=== PATIENT | male | born 1970 | race Caucasian/White ===

== ENCOUNTER → 2019-07-05 | Outpatient (CLI) | payer MEDICAID ==
[2019-07-05 15:59] LABS: WHITE BLOOD COUNT 9.2 10^3/uL (4.3-11.0)
[2019-07-05 16:00] LABS: BASOPHILS # (AUTO) 0.1 10^3/uL (0.0-0.1); BASOPHILS % (AUTO) 1 % (0-10); EOSINOPHILS # (AUTO) 0.3 10^3/uL (0.0-0.3); EOSINOPHILS % (AUTO) 3 % (0-10); HEMATOCRIT 36 % (40-54); HEMOGLOBIN 11.5 G/DL (13.3-17.7); LYMPHOCYTES # (AUTO) 1.7 X 10^3 (1.0-4.0); LYMPHOCYTES % (AUTO) 18 % (12-44); MEAN CORPUSCULAR HEMOGLOBIN 28 PG (25-34); MEAN CORPUSCULAR HGB CONC 32 G/DL (32-36); MEAN CORPUSCULAR VOLUME 88 FL (80-99); MEAN PLATELET VOLUME 9.5 FL (7.4-10.4); MONOCYTES # (AUTO) 0.6 X 10^3 (0.0-1.0); MONOCYTES % (AUTO) 6 % (0-12); NEUTROPHILS # (AUTO) 6.5 X 10^3 (1.8-7.8); NEUTROPHILS % (AUTO) 71 % (42-75); PLATELET COUNT 459 10^3/uL (130-400); RED CELL DISTRIBUTION WIDTH 13.3 % (10.0-14.5)
[2019-07-05 16:09] LABS: BUN/CREATININE RATIO 12; CARBON DIOXIDE 27 MMOL/L (21-32); CHLORIDE 95 MMOL/L (98-107); CREATININE SERUM 0.73 MG/DL (0.60-1.30); GFR ESTIMATED > 60; POTASSIUM 4.6 MMOL/L (3.6-5.0); SODIUM 136 MMOL/L (135-145)
[2019-07-05 16:16] LABS: ALANINE AMINOTRANSFERASE 21 U/L (0-55); ALBUMIN 3.4 GM/DL (3.2-4.5); ALKALINE PHOSPHATASE 281 U/L (40-136); BILIRUBIN,TOTAL 0.3 MG/DL (0.1-1.0); CALCIUM 9.2 MG/DL (8.5-10.1); GLUCOSE 410 MG/DL (70-105); TOTAL PROTEIN 8.9 GM/DL (6.4-8.2)
[2019-07-05 16:44] LABS: ERYTHROCYTE SEDIMENTATION RATE 102 MM/HR (0-15)
== END ==
LOC: LAB FS 15:30
PROVIDERS: ATTEND Family Medicine
DX: A41.9 Sepsis, unspecified organism (principal); Z79.2 Long term (current) use of antibiotics
CPT/HCPCS: 36415; 80053; 85025; 85652; 86141

== ENCOUNTER → 2019-07-12 | Outpatient (CLI) | payer MEDICAID ==
[2019-07-12 18:33] LABS: HEMOGLOBIN 11.1 G/DL (13.3-17.7); MEAN CORPUSCULAR HEMOGLOBIN 28 PG (25-34); WHITE BLOOD COUNT 7.6 10^3/uL (4.3-11.0)
[2019-07-12 18:34] LABS: BASOPHILS % (AUTO) 0 % (0-10); EOSINOPHILS % (AUTO) 5 % (0-10); HEMATOCRIT 35 % (40-54); LYMPHOCYTES % (AUTO) 26 % (12-44); MEAN CORPUSCULAR HGB CONC 32 G/DL (32-36); MEAN CORPUSCULAR VOLUME 88 FL (80-99); MEAN PLATELET VOLUME 10.3 FL (7.4-10.4); MONOCYTES % (AUTO) 9 % (0-12); NEUTROPHILS # (AUTO) 4.6 X 10^3 (1.8-7.8); NEUTROPHILS % (AUTO) 60 % (42-75); PLATELET COUNT 241 10^3/uL (130-400); RED CELL DISTRIBUTION WIDTH 13.5 % (10.0-14.5)
[2019-07-12 18:35] LABS: EOSINOPHILS # (AUTO) 0.4 10^3/uL (0.0-0.3); MONOCYTES # (AUTO) 0.7 X 10^3 (0.0-1.0)
[2019-07-12 18:48] LABS: CARBON DIOXIDE 26 MMOL/L (21-32); CHLORIDE 95 MMOL/L (98-107); POTASSIUM 3.9 MMOL/L (3.6-5.0); SODIUM 137 MMOL/L (135-145)
[2019-07-12 18:49] LABS: ALANINE AMINOTRANSFERASE 14 U/L (0-55); ALBUMIN 3.3 GM/DL (3.2-4.5); ALKALINE PHOSPHATASE 147 U/L (40-136); BILIRUBIN,TOTAL 0.3 MG/DL (0.1-1.0); BUN/CREATININE RATIO 22; CALCIUM 9.2 MG/DL (8.5-10.1); GFR ESTIMATED > 60; GLUCOSE 268 MG/DL (70-105); TOTAL PROTEIN 8.3 GM/DL (6.4-8.2)
[2019-07-12 18:55] LABS: ERYTHROCYTE SEDIMENTATION RATE 74 MM/HR (0-15)
[2019-07-13 08:40] LABS: CREATINE KINASE 35 U/L (30-200)
== END ==
LOC: LAB FS 18:11
PROVIDERS: ATTEND Internal Medicine Infectious Disease
DX: A41.9 Sepsis, unspecified organism (principal); L03.119 Cellulitis of unspecified part of limb; Z79.2 Long term (current) use of antibiotics
CPT/HCPCS: 80053; 82550; 85025; 85652; 86141

== ENCOUNTER → 2019-07-19 | Outpatient (CLI) | payer MEDICAID ==
[2019-07-19 17:06] LABS: HEMATOCRIT 37 % (40-54); HEMOGLOBIN 11.7 G/DL (13.3-17.7); MEAN CORPUSCULAR HEMOGLOBIN 27 PG (25-34); MEAN CORPUSCULAR HGB CONC 32 G/DL (32-36); MEAN CORPUSCULAR VOLUME 87 FL (80-99); PLATELET COUNT 283 10^3/uL (130-400); RED CELL DISTRIBUTION WIDTH 13.5 % (10.0-14.5); WHITE BLOOD COUNT 9.1 10^3/uL (4.3-11.0)
[2019-07-19 17:07] LABS: BASOPHILS # (AUTO) 0.1 10^3/uL (0.0-0.1); BASOPHILS % (AUTO) 1 % (0-10); EOSINOPHILS # (AUTO) 0.4 10^3/uL (0.0-0.3); EOSINOPHILS % (AUTO) 4 % (0-10); LYMPHOCYTES % (AUTO) 22 % (12-44); MONOCYTES # (AUTO) 0.8 X 10^3 (0.0-1.0); MONOCYTES % (AUTO) 9 % (0-12); NEUTROPHILS # (AUTO) 5.9 X 10^3 (1.8-7.8); NEUTROPHILS % (AUTO) 65 % (42-75)
[2019-07-19 17:19] LABS: ALANINE AMINOTRANSFERASE 15 U/L (0-55); ALKALINE PHOSPHATASE 121 U/L (40-136); BILIRUBIN,TOTAL 0.2 MG/DL (0.1-1.0); BUN/CREATININE RATIO 18; CALCIUM 9.4 MG/DL (8.5-10.1); CARBON DIOXIDE 19 MMOL/L (21-32); CHLORIDE 102 MMOL/L (98-107); CREATININE SERUM 0.78 MG/DL (0.60-1.30); GFR ESTIMATED > 60; GLUCOSE 204 MG/DL (70-105); POTASSIUM 4.2 MMOL/L (3.6-5.0); SODIUM 137 MMOL/L (135-145)
[2019-07-19 17:20] LABS: ALBUMIN 3.4 GM/DL (3.2-4.5); TOTAL PROTEIN 8.2 GM/DL (6.4-8.2)
[2019-07-19 18:21] LABS: ERYTHROCYTE SEDIMENTATION RATE 62 MM/HR (0-15)
== END ==
LOC: LAB FS 16:37
PROVIDERS: ATTEND Internal Medicine Infectious Disease
DX: A41.9 Sepsis, unspecified organism (principal); L03.119 Cellulitis of unspecified part of limb; Z79.2 Long term (current) use of antibiotics
CPT/HCPCS: 36415; 80053; 82550; 85025; 85652; 86141

== ENCOUNTER → 2019-07-26 | Outpatient (CLI) | payer MEDICAID ==
[2019-07-26 19:16] LABS: HEMATOCRIT 36 % (40-54); HEMOGLOBIN 11.6 G/DL (13.3-17.7); MEAN CORPUSCULAR HEMOGLOBIN 27 PG (25-34); MEAN CORPUSCULAR HGB CONC 32 G/DL (32-36); MEAN CORPUSCULAR VOLUME 85 FL (80-99); WHITE BLOOD COUNT 9.9 10^3/uL (4.3-11.0)
[2019-07-26 19:17] LABS: BASOPHILS # (AUTO) 0.1 10^3/uL (0.0-0.1); BASOPHILS % (AUTO) 1 % (0-10); EOSINOPHILS # (AUTO) 0.5 10^3/uL (0.0-0.3); EOSINOPHILS % (AUTO) 5 % (0-10); LYMPHOCYTES # (AUTO) 2.4 X 10^3 (1.0-4.0); LYMPHOCYTES % (AUTO) 24 % (12-44); MONOCYTES # (AUTO) 0.7 X 10^3 (0.0-1.0); MONOCYTES % (AUTO) 8 % (0-12); NEUTROPHILS # (AUTO) 6.1 X 10^3 (1.8-7.8); NEUTROPHILS % (AUTO) 62 % (42-75); PLATELET COUNT 342 10^3/uL (130-400); RED CELL DISTRIBUTION WIDTH 13.4 % (10.0-14.5)
[2019-07-26 19:45] LABS: ALANINE AMINOTRANSFERASE 14 U/L (0-55); ALBUMIN 3.4 GM/DL (3.2-4.5); ALKALINE PHOSPHATASE 122 U/L (40-136); BILIRUBIN,TOTAL 0.2 MG/DL (0.1-1.0); BUN/CREATININE RATIO 27; CALCIUM 9.5 MG/DL (8.5-10.1); CARBON DIOXIDE 26 MMOL/L (21-32); CHLORIDE 99 MMOL/L (98-107); CREATININE SERUM 0.75 MG/DL (0.60-1.30); GFR ESTIMATED > 60; GLUCOSE 163 MG/DL (70-105); POTASSIUM 4.7 MMOL/L (3.6-5.0); SODIUM 139 MMOL/L (135-145); TOTAL PROTEIN 7.7 GM/DL (6.4-8.2)
[2019-07-26 19:48] LABS: ERYTHROCYTE SEDIMENTATION RATE 57 MM/HR (0-15)
== END ==
LOC: LAB FS 17:40
PROVIDERS: ATTEND Internal Medicine Infectious Disease
DX: A41.9 Sepsis, unspecified organism (principal); L03.119 Cellulitis of unspecified part of limb; Z79.2 Long term (current) use of antibiotics
CPT/HCPCS: 36415; 80053; 82550; 85025; 85652; 86141

== ENCOUNTER → 2019-08-02 | Outpatient (CLI) | payer MEDICAID ==
[2019-08-02 19:56] LABS: ALANINE AMINOTRANSFERASE 12 U/L (0-55); ALBUMIN 3.6 GM/DL (3.2-4.5); ALKALINE PHOSPHATASE 140 U/L (40-136); BILIRUBIN,TOTAL 0.3 MG/DL (0.1-1.0); BUN/CREATININE RATIO 19; CALCIUM 9.1 MG/DL (8.5-10.1); CARBON DIOXIDE 24 MMOL/L (21-32); CHLORIDE 97 MMOL/L (98-107); GFR ESTIMATED > 60; GLUCOSE 214 MG/DL (70-105); POTASSIUM 3.8 MMOL/L (3.6-5.0); SODIUM 137 MMOL/L (135-145); TOTAL PROTEIN 7.9 GM/DL (6.4-8.2)
[2019-08-02 20:05] LABS: HEMATOCRIT 35 % (40-54); MEAN CORPUSCULAR HEMOGLOBIN 27 PG (25-34); MEAN CORPUSCULAR HGB CONC 32 G/DL (32-36); MEAN CORPUSCULAR VOLUME 85 FL (80-99)
[2019-08-02 20:06] LABS: BASOPHILS % (AUTO) 0 % (0-10); EOSINOPHILS # (AUTO) 0.4 10^3/uL (0.0-0.3); EOSINOPHILS % (AUTO) 4 % (0-10); ERYTHROCYTE SEDIMENTATION RATE 60 MM/HR (0-15); LYMPHOCYTES # (AUTO) 2.5 X 10^3 (1.0-4.0); LYMPHOCYTES % (AUTO) 25 % (12-44); MEAN PLATELET VOLUME 10.5 FL (7.4-10.4); MONOCYTES # (AUTO) 0.7 X 10^3 (0.0-1.0); MONOCYTES % (AUTO) 7 % (0-12); NEUTROPHILS # (AUTO) 6.4 X 10^3 (1.8-7.8); NEUTROPHILS % (AUTO) 64 % (42-75); PLATELET COUNT 284 10^3/uL (130-400); RED CELL DISTRIBUTION WIDTH 13.2 % (10.0-14.5)
== END ==
LOC: LAB FS 17:59
PROVIDERS: ATTEND Internal Medicine Infectious Disease
DX: A41.9 Sepsis, unspecified organism (principal); L03.119 Cellulitis of unspecified part of limb; Z79.2 Long term (current) use of antibiotics
CPT/HCPCS: 36415; 80053; 82550; 85025; 85652; 86141

== ENCOUNTER → 2019-08-09 | Outpatient (CLI) | payer MEDICAID ==
[2019-08-09 18:09] LABS: WHITE BLOOD COUNT 8.4 10^3/uL (4.3-11.0)
[2019-08-09 18:10] LABS: BASOPHILS % (AUTO) 0 % (0-10); EOSINOPHILS # (AUTO) 0.3 10^3/uL (0.0-0.3); EOSINOPHILS % (AUTO) 4 % (0-10); HEMATOCRIT 38 % (40-54); HEMOGLOBIN 12.2 G/DL (13.3-17.7); LYMPHOCYTES # (AUTO) 1.9 X 10^3 (1.0-4.0); LYMPHOCYTES % (AUTO) 23 % (12-44); MEAN CORPUSCULAR HEMOGLOBIN 27 PG (25-34); MEAN CORPUSCULAR HGB CONC 32 G/DL (32-36); MEAN CORPUSCULAR VOLUME 84 FL (80-99); MEAN PLATELET VOLUME 9.9 FL (7.4-10.4); MONOCYTES # (AUTO) 0.6 X 10^3 (0.0-1.0); MONOCYTES % (AUTO) 8 % (0-12); NEUTROPHILS # (AUTO) 5.4 X 10^3 (1.8-7.8); NEUTROPHILS % (AUTO) 65 % (42-75); PLATELET COUNT 309 10^3/uL (130-400); RED CELL DISTRIBUTION WIDTH 13.5 % (10.0-14.5)
[2019-08-09 18:31] LABS: ALANINE AMINOTRANSFERASE 11 U/L (0-55); ALBUMIN 3.6 GM/DL (3.2-4.5); ALKALINE PHOSPHATASE 122 U/L (40-136); BILIRUBIN,TOTAL 0.3 MG/DL (0.1-1.0); BUN/CREATININE RATIO 21; CALCIUM 9.6 MG/DL (8.5-10.1); CARBON DIOXIDE 25 MMOL/L (21-32); CHLORIDE 97 MMOL/L (98-107); CREATININE SERUM 0.62 MG/DL (0.60-1.30); GFR ESTIMATED > 60; GLUCOSE 186 MG/DL (70-105); POTASSIUM 4.1 MMOL/L (3.6-5.0); SODIUM 138 MMOL/L (135-145); TOTAL PROTEIN 7.8 GM/DL (6.4-8.2)
[2019-08-09 18:32] LABS: ERYTHROCYTE SEDIMENTATION RATE 57 MM/HR (0-15)
== END ==
LOC: IHC 17:21
PROVIDERS: ATTEND Internal Medicine Infectious Disease
DX: A41.9 Sepsis, unspecified organism (principal); L03.119 Cellulitis of unspecified part of limb; Z79.2 Long term (current) use of antibiotics
CPT/HCPCS: 36415; 80053; 82550; 85025; 85652; 86141

== ENCOUNTER → 2019-08-17 | Outpatient (CLI) | payer MEDICAID ==
[2019-08-17 16:53] LABS: BASOPHILS % (AUTO) 0 % (0-10); EOSINOPHILS # (AUTO) 0.2 10^3/uL (0.0-0.3); EOSINOPHILS % (AUTO) 2 % (0-10); ERYTHROCYTE SEDIMENTATION RATE 1 MM/HR (0-15); HEMATOCRIT 41 % (40-54); HEMOGLOBIN 12.9 G/DL (13.3-17.7); LYMPHOCYTES # (AUTO) 2.1 X 10^3 (1.0-4.0); LYMPHOCYTES % (AUTO) 24 % (12-44); MEAN CORPUSCULAR HEMOGLOBIN 26 PG (25-34); MEAN CORPUSCULAR VOLUME 84 FL (80-99); MEAN PLATELET VOLUME 10.7 FL (7.4-10.4); MONOCYTES # (AUTO) 0.7 X 10^3 (0.0-1.0); MONOCYTES % (AUTO) 8 % (0-12); NEUTROPHILS # (AUTO) 5.8 X 10^3 (1.8-7.8); NEUTROPHILS % (AUTO) 66 % (42-75); PLATELET COUNT 353 10^3/uL (130-400); RED CELL DISTRIBUTION WIDTH 13.3 % (10.0-14.5); WHITE BLOOD COUNT 8.8 10^3/uL (4.3-11.0)
[2019-08-17 16:54] LABS: BILIRUBIN,TOTAL 0.3 MG/DL (0.1-1.0); BUN/CREATININE RATIO 28; CALCIUM 10.1 MG/DL (8.5-10.1); CARBON DIOXIDE 22 MMOL/L (21-32); CHLORIDE 99 MMOL/L (98-107); CREATININE SERUM 0.74 MG/DL (0.60-1.30); GFR ESTIMATED > 60; GLUCOSE 252 MG/DL (70-105); MEAN CORPUSCULAR HGB CONC 32 G/DL (32-36); POTASSIUM 4.3 MMOL/L (3.6-5.0); SODIUM 138 MMOL/L (135-145)
[2019-08-17 16:55] LABS: ALANINE AMINOTRANSFERASE 13 U/L (0-55); ALBUMIN 3.9 GM/DL (3.2-4.5); ALKALINE PHOSPHATASE 147 U/L (40-136); TOTAL PROTEIN 8.5 GM/DL (6.4-8.2)
== END ==
LOC: LAB FS 15:23
PROVIDERS: ATTEND Internal Medicine Infectious Disease
DX: A41.9 Sepsis, unspecified organism (principal); L03.119 Cellulitis of unspecified part of limb; Z79.2 Long term (current) use of antibiotics
CPT/HCPCS: 36415; 80053; 82550; 85025; 85652; 86141

== ENCOUNTER → 2019-08-24 | Outpatient (CLI) | payer MEDICAID ==
[2019-08-24 15:38] LABS: BASOPHILS % (AUTO) 0 % (0-10); EOSINOPHILS # (AUTO) 0.2 10^3/uL (0.0-0.3); EOSINOPHILS % (AUTO) 3 % (0-10); HEMATOCRIT 38 % (40-54); HEMOGLOBIN 11.8 G/DL (13.3-17.7); LYMPHOCYTES # (AUTO) 1.7 X 10^3 (1.0-4.0); LYMPHOCYTES % (AUTO) 23 % (12-44); MEAN CORPUSCULAR HEMOGLOBIN 26 PG (25-34); MEAN CORPUSCULAR HGB CONC 32 G/DL (32-36); MEAN CORPUSCULAR VOLUME 83 FL (80-99); MEAN PLATELET VOLUME 10.4 FL (7.4-10.4); MONOCYTES # (AUTO) 0.7 X 10^3 (0.0-1.0); MONOCYTES % (AUTO) 10 % (0-12); NEUTROPHILS # (AUTO) 4.9 X 10^3 (1.8-7.8); NEUTROPHILS % (AUTO) 65 % (42-75); PLATELET COUNT 283 10^3/uL (130-400); RED CELL DISTRIBUTION WIDTH 13.7 % (10.0-14.5); WHITE BLOOD COUNT 7.6 10^3/uL (4.3-11.0)
[2019-08-24 15:56] LABS: ALANINE AMINOTRANSFERASE 9 U/L (0-55); ALBUMIN 3.4 GM/DL (3.2-4.5); ALKALINE PHOSPHATASE 120 U/L (40-136); BILIRUBIN,TOTAL 0.2 MG/DL (0.1-1.0); BUN/CREATININE RATIO 15; CALCIUM 8.8 MG/DL (8.5-10.1); CARBON DIOXIDE 24 MMOL/L (21-32); CHLORIDE 101 MMOL/L (98-107); CREATININE SERUM 0.75 MG/DL (0.60-1.30); GFR ESTIMATED > 60; GLUCOSE 354 MG/DL (70-105); POTASSIUM 4.2 MMOL/L (3.6-5.0); SODIUM 138 MMOL/L (135-145); TOTAL PROTEIN 7.2 GM/DL (6.4-8.2)
[2019-08-24 16:28] LABS: ERYTHROCYTE SEDIMENTATION RATE 58 MM/HR (0-15)
[2019-08-25 15:22] LABS: CREATINE KINASE 33 U/L (30-200)
== END ==
LOC: LAB FS 15:07
PROVIDERS: ATTEND Internal Medicine Infectious Disease
DX: A41.9 Sepsis, unspecified organism (principal); L03.119 Cellulitis of unspecified part of limb; Z79.2 Long term (current) use of antibiotics
CPT/HCPCS: 36415; 80053; 82550; 85025; 85652; 86141

== ENCOUNTER → 2019-09-18 | Outpatient (CLI) | payer MEDICAID ==
[2019-09-18 16:43] LABS: HEMATOCRIT 38 % (40-54); HEMOGLOBIN 11.5 G/DL (13.3-17.7); MEAN CORPUSCULAR HEMOGLOBIN 25 PG (25-34); MEAN CORPUSCULAR HGB CONC 30 G/DL (32-36); MEAN CORPUSCULAR VOLUME 82 FL (80-99); MEAN PLATELET VOLUME 10.2 FL (7.4-10.4); PLATELET COUNT 394 10^3/uL (130-400); RED CELL DISTRIBUTION WIDTH 13.7 % (10.0-14.5); WHITE BLOOD COUNT 9.6 10^3/uL (4.3-11.0)
[2019-09-18 16:44] LABS: BASOPHILS # (AUTO) 0.1 10^3/uL (0.0-0.1); BASOPHILS % (AUTO) 1 % (0-10); EOSINOPHILS # (AUTO) 0.5 10^3/uL (0.0-0.3); EOSINOPHILS % (AUTO) 5 % (0-10); ERYTHROCYTE SEDIMENTATION RATE 1 MM/HR (0-15); LYMPHOCYTES # (AUTO) 2.1 X 10^3 (1.0-4.0); LYMPHOCYTES % (AUTO) 22 % (12-44); MONOCYTES # (AUTO) 0.8 X 10^3 (0.0-1.0); MONOCYTES % (AUTO) 8 % (0-12); NEUTROPHILS # (AUTO) 6.3 X 10^3 (1.8-7.8); NEUTROPHILS % (AUTO) 65 % (42-75)
[2019-09-18 16:45] LABS: ALANINE AMINOTRANSFERASE 19 U/L (0-55); ALBUMIN 3.7 GM/DL (3.2-4.5); ALKALINE PHOSPHATASE 133 U/L (40-136); BILIRUBIN,TOTAL 0.2 MG/DL (0.1-1.0); BUN/CREATININE RATIO 17; CALCIUM 9.5 MG/DL (8.5-10.1); CARBON DIOXIDE 28 MMOL/L (21-32); CHLORIDE 97 MMOL/L (98-107); CREATININE SERUM 0.87 MG/DL (0.60-1.30); GFR ESTIMATED > 60; GLUCOSE 346 MG/DL (70-105); POTASSIUM 4.5 MMOL/L (3.6-5.0); SODIUM 138 MMOL/L (135-145)
== END ==
LOC: LAB FS 16:08
PROVIDERS: ATTEND Internal Medicine Infectious Disease
DX: L97.512 Non-pressure chronic ulcer of other part of right foot with fat layer exposed (principal); L03.115 Cellulitis of right lower limb; B95.1 Streptococcus, group B, as the cause of diseases classified elsewhere; Z79.2 Long term (current) use of antibiotics
CPT/HCPCS: 36415; 80053; 85025; 85652; 86141

== ENCOUNTER → 2019-09-25 | Outpatient (CLI) | payer MEDICAID ==
[2019-09-25 19:42] LABS: BILIRUBIN,TOTAL 0.2 MG/DL (0.1-1.0); BUN/CREATININE RATIO 23; CALCIUM 9.6 MG/DL (8.5-10.1); CARBON DIOXIDE 28 MMOL/L (21-32); CHLORIDE 99 MMOL/L (98-107); CREATININE SERUM 0.75 MG/DL (0.60-1.30); GFR ESTIMATED > 60; POTASSIUM 4.4 MMOL/L (3.6-5.0); SODIUM 140 MMOL/L (135-145)
[2019-09-25 19:43] LABS: ALANINE AMINOTRANSFERASE 15 U/L (0-55); ALBUMIN 3.6 GM/DL (3.2-4.5); ALKALINE PHOSPHATASE 120 U/L (40-136); TOTAL PROTEIN 7.6 GM/DL (6.4-8.2)
[2019-09-25 19:44] LABS: GLUCOSE 415 MG/DL (70-105)
[2019-09-25 19:46] LABS: HEMATOCRIT 37 % (40-54); HEMOGLOBIN 11.6 G/DL (13.3-17.7); MEAN CORPUSCULAR HEMOGLOBIN 25 PG (25-34); MEAN CORPUSCULAR HGB CONC 31 G/DL (32-36); MEAN CORPUSCULAR VOLUME 80 FL (80-99); MEAN PLATELET VOLUME 10.5 FL (7.4-10.4); MONOCYTES % (AUTO) 7 % (0-12); NEUTROPHILS % (AUTO) 67 % (42-75); PLATELET COUNT 273 10^3/uL (130-400); RED CELL DISTRIBUTION WIDTH 13.8 % (10.0-14.5); WHITE BLOOD COUNT 8.3 10^3/uL (4.3-11.0)
[2019-09-25 19:47] LABS: BASOPHILS % (AUTO) 0 % (0-10); EOSINOPHILS # (AUTO) 0.4 10^3/uL (0.0-0.3); EOSINOPHILS % (AUTO) 4 % (0-10); LYMPHOCYTES # (AUTO) 1.8 X 10^3 (1.0-4.0); LYMPHOCYTES % (AUTO) 22 % (12-44); MONOCYTES # (AUTO) 0.6 X 10^3 (0.0-1.0); NEUTROPHILS # (AUTO) 5.5 X 10^3 (1.8-7.8)
[2019-09-25 19:48] LABS: ERYTHROCYTE SEDIMENTATION RATE 34 MM/HR (0-15)
== END ==
LOC: LAB FS 17:49
DX: M86.60 Other chronic osteomyelitis, unspecified site (principal)
CPT/HCPCS: 36415; 80053; 85025; 85652; 86141

== ENCOUNTER → 2019-10-02 | Outpatient (CLI) | payer MEDICAID ==
[2019-10-02 15:43] LABS: SODIUM 139 MMOL/L (135-145)
[2019-10-02 15:44] LABS: ALANINE AMINOTRANSFERASE 16 U/L (0-55); ALBUMIN 3.3 GM/DL (3.2-4.5); ALKALINE PHOSPHATASE 114 U/L (40-136); BILIRUBIN,TOTAL 0.2 MG/DL (0.1-1.0); BUN/CREATININE RATIO 21; CARBON DIOXIDE 24 MMOL/L (21-32); CHLORIDE 101 MMOL/L (98-107); CREATININE SERUM 0.87 MG/DL (0.60-1.30); GFR ESTIMATED > 60; GLUCOSE 245 MG/DL (70-105); POTASSIUM 4.5 MMOL/L (3.6-5.0); TOTAL PROTEIN 7.1 GM/DL (6.4-8.2)
[2019-10-02 16:30] LABS: HEMATOCRIT 35 % (40-54); HEMOGLOBIN 10.9 G/DL (13.3-17.7); MEAN CORPUSCULAR HEMOGLOBIN 24 PG (25-34); MEAN CORPUSCULAR HGB CONC 31 G/DL (32-36); MEAN CORPUSCULAR VOLUME 78 FL (80-99); MEAN PLATELET VOLUME 10.6 FL (7.4-10.4); PLATELET COUNT 294 10^3/uL (130-400); RED CELL DISTRIBUTION WIDTH 13.8 % (10.0-14.5); WHITE BLOOD COUNT 7.7 10^3/uL (4.3-11.0)
[2019-10-02 16:31] LABS: BASOPHILS # (AUTO) 0.1 10^3/uL (0.0-0.1); BASOPHILS % (AUTO) 1 % (0-10); EOSINOPHILS # (AUTO) 0.3 10^3/uL (0.0-0.3); EOSINOPHILS % (AUTO) 4 % (0-10); ERYTHROCYTE SEDIMENTATION RATE 38 MM/HR (0-15); LYMPHOCYTES # (AUTO) 1.6 X 10^3 (1.0-4.0); LYMPHOCYTES % (AUTO) 21 % (12-44); MONOCYTES # (AUTO) 0.7 X 10^3 (0.0-1.0); MONOCYTES % (AUTO) 10 % (0-12); NEUTROPHILS % (AUTO) 64 % (42-75)
== END ==
LOC: LAB FS 14:43
PROVIDERS: ATTEND Internal Medicine Infectious Disease
DX: L97.512 Non-pressure chronic ulcer of other part of right foot with fat layer exposed (principal); L03.115 Cellulitis of right lower limb; B95.1 Streptococcus, group B, as the cause of diseases classified elsewhere; Z79.2 Long term (current) use of antibiotics
CPT/HCPCS: 36415; 80053; 85025; 85652; 86141

== ENCOUNTER → 2019-10-09 | Outpatient (CLI) | payer MEDICAID ==
[2019-10-09 17:47] LABS: BASOPHILS # (AUTO) 0.1 10^3/uL (0.0-0.1); BASOPHILS % (AUTO) 1 % (0-10); EOSINOPHILS # (AUTO) 0.2 10^3/uL (0.0-0.3); EOSINOPHILS % (AUTO) 3 % (0-10); HEMATOCRIT 37 % (40-54); HEMOGLOBIN 11.3 G/DL (13.3-17.7); LYMPHOCYTES # (AUTO) 2.5 X 10^3 (1.0-4.0); LYMPHOCYTES % (AUTO) 29 % (12-44); MEAN CORPUSCULAR HEMOGLOBIN 24 PG (25-34); MEAN CORPUSCULAR HGB CONC 31 G/DL (32-36); MEAN CORPUSCULAR VOLUME 76 FL (80-99); MEAN PLATELET VOLUME 10.7 FL (7.4-10.4); MONOCYTES # (AUTO) 0.7 X 10^3 (0.0-1.0); MONOCYTES % (AUTO) 8 % (0-12); NEUTROPHILS # (AUTO) 5.2 X 10^3 (1.8-7.8); NEUTROPHILS % (AUTO) 60 % (42-75); PLATELET COUNT 346 10^3/uL (130-400); RED CELL DISTRIBUTION WIDTH 13.9 % (10.0-14.5); WHITE BLOOD COUNT 8.7 10^3/uL (4.3-11.0)
[2019-10-09 18:11] LABS: CARBON DIOXIDE 24 MMOL/L (21-32); CHLORIDE 103 MMOL/L (98-107); POTASSIUM 4.1 MMOL/L (3.6-5.0); SODIUM 139 MMOL/L (135-145)
[2019-10-09 18:12] LABS: ALANINE AMINOTRANSFERASE 11 U/L (0-55); ALBUMIN 3.4 GM/DL (3.2-4.5); ALKALINE PHOSPHATASE 146 U/L (40-136); BILIRUBIN,TOTAL 0.3 MG/DL (0.1-1.0); BUN/CREATININE RATIO 20; CALCIUM 9.2 MG/DL (8.5-10.1); CREATININE SERUM 0.71 MG/DL (0.60-1.30); GFR ESTIMATED > 60; GLUCOSE 199 MG/DL (70-105); TOTAL PROTEIN 7.1 GM/DL (6.4-8.2)
[2019-10-09 18:47] LABS: ERYTHROCYTE SEDIMENTATION RATE 35 MM/HR (0-15)
== END ==
LOC: IHC 17:16
PROVIDERS: ATTEND Internal Medicine Infectious Disease
DX: L97.512 Non-pressure chronic ulcer of other part of right foot with fat layer exposed (principal); L03.115 Cellulitis of right lower limb; B95.1 Streptococcus, group B, as the cause of diseases classified elsewhere; Z79.2 Long term (current) use of antibiotics
CPT/HCPCS: 36415; 80053; 85025; 85652; 86141

== ENCOUNTER → 2019-10-16 | Outpatient (CLI) | payer MEDICAID ==
[2019-10-16 17:57] LABS: HEMATOCRIT 40 % (40-54); HEMOGLOBIN 12.3 G/DL (13.3-17.7); MEAN CORPUSCULAR HEMOGLOBIN 24 PG (25-34); MEAN CORPUSCULAR HGB CONC 31 G/DL (32-36); MEAN CORPUSCULAR VOLUME 78 FL (80-99); WHITE BLOOD COUNT 9.3 10^3/uL (4.3-11.0)
[2019-10-16 17:58] LABS: BASOPHILS # (AUTO) 0.1 10^3/uL (0.0-0.1); BASOPHILS % (AUTO) 1 % (0-10); EOSINOPHILS # (AUTO) 0.3 10^3/uL (0.0-0.3); EOSINOPHILS % (AUTO) 3 % (0-10); LYMPHOCYTES # (AUTO) 2.1 X 10^3 (1.0-4.0); LYMPHOCYTES % (AUTO) 23 % (12-44); MEAN PLATELET VOLUME 10.7 FL (7.4-10.4); MONOCYTES # (AUTO) 0.6 X 10^3 (0.0-1.0); MONOCYTES % (AUTO) 7 % (0-12); NEUTROPHILS # (AUTO) 6.2 X 10^3 (1.8-7.8); NEUTROPHILS % (AUTO) 67 % (42-75); PLATELET COUNT 325 10^3/uL (130-400); RED CELL DISTRIBUTION WIDTH 13.9 % (10.0-14.5)
[2019-10-16 18:24] LABS: ERYTHROCYTE SEDIMENTATION RATE 62 MM/HR (0-15)
[2019-10-16 18:47] LABS: SODIUM 137 MMOL/L (135-145)
[2019-10-16 18:48] LABS: ALANINE AMINOTRANSFERASE 13 U/L (0-55); ALBUMIN 3.6 GM/DL (3.2-4.5); ALKALINE PHOSPHATASE 153 U/L (40-136); BILIRUBIN,TOTAL 0.3 MG/DL (0.1-1.0); BUN/CREATININE RATIO 24; CALCIUM 9.4 MG/DL (8.5-10.1); CARBON DIOXIDE 27 MMOL/L (21-32); CHLORIDE 98 MMOL/L (98-107); GFR ESTIMATED > 60; GLUCOSE 355 MG/DL (70-105); POTASSIUM 4.2 MMOL/L (3.6-5.0); TOTAL PROTEIN 7.7 GM/DL (6.4-8.2)
== END ==
LOC: LAB FS 17:16
PROVIDERS: ATTEND Internal Medicine Infectious Disease
DX: L97.512 Non-pressure chronic ulcer of other part of right foot with fat layer exposed (principal); L03.115 Cellulitis of right lower limb; B95.1 Streptococcus, group B, as the cause of diseases classified elsewhere; Z79.2 Long term (current) use of antibiotics
CPT/HCPCS: 36415; 80053; 85025; 85652; 86141

== ENCOUNTER → 2019-10-23 | Outpatient (CLI) | payer MEDICAID ==
[2019-10-23 15:48] LABS: EOSINOPHILS % (AUTO) 4 % (0-10); HEMATOCRIT 39 % (40-54); HEMOGLOBIN 11.8 G/DL (13.3-17.7); LYMPHOCYTES % (AUTO) 22 % (12-44); MEAN CORPUSCULAR HEMOGLOBIN 24 PG (25-34); MEAN CORPUSCULAR HGB CONC 30 G/DL (32-36); MEAN CORPUSCULAR VOLUME 78 FL (80-99); MONOCYTES % (AUTO) 8 % (0-12); NEUTROPHILS % (AUTO) 65 % (42-75); PLATELET COUNT 238 10^3/uL (130-400); RED CELL DISTRIBUTION WIDTH 14.3 % (10.0-14.5); WHITE BLOOD COUNT 9.2 10^3/uL (4.3-11.0)
[2019-10-23 15:49] LABS: BASOPHILS % (AUTO) 0 % (0-10); EOSINOPHILS # (AUTO) 0.3 10^3/uL (0.0-0.3); ERYTHROCYTE SEDIMENTATION RATE 36 MM/HR (0-15); LYMPHOCYTES # (AUTO) 2.1 X 10^3 (1.0-4.0); MONOCYTES # (AUTO) 0.8 X 10^3 (0.0-1.0)
[2019-10-23 17:14] LABS: CHLORIDE 99 MMOL/L (98-107); POTASSIUM 4.8 MMOL/L (3.6-5.0); SODIUM 138 MMOL/L (135-145)
[2019-10-23 17:15] LABS: ALANINE AMINOTRANSFERASE 18 U/L (0-55); ALBUMIN 3.8 GM/DL (3.2-4.5); ALKALINE PHOSPHATASE 148 U/L (40-136); BILIRUBIN,TOTAL 0.2 MG/DL (0.1-1.0); BUN/CREATININE RATIO 27; CALCIUM 9.8 MG/DL (8.5-10.1); CARBON DIOXIDE 29 MMOL/L (21-32); CREATININE SERUM 0.81 MG/DL (0.60-1.30); GFR ESTIMATED > 60; GLUCOSE 263 MG/DL (70-105); TOTAL PROTEIN 7.8 GM/DL (6.4-8.2)
== END ==
LOC: IHC 14:25
PROVIDERS: ATTEND Internal Medicine Infectious Disease
DX: L97.512 Non-pressure chronic ulcer of other part of right foot with fat layer exposed (principal); L03.115 Cellulitis of right lower limb; B95.1 Streptococcus, group B, as the cause of diseases classified elsewhere; Z79.2 Long term (current) use of antibiotics
CPT/HCPCS: 36415; 80053; 85025; 85652; 86141

== ENCOUNTER → 2019-11-02 | Outpatient (CLI) | payer MEDICAID ==
[2019-11-02 15:44] LABS: BASOPHILS % (AUTO) 1 % (0-10); EOSINOPHILS # (AUTO) 0.2 10^3/uL (0.0-0.3); EOSINOPHILS % (AUTO) 2 % (0-10); HEMATOCRIT 42 % (40-54); HEMOGLOBIN 12.9 G/DL (13.3-17.7); LYMPHOCYTES # (AUTO) 1.2 X 10^3 (1.0-4.0); LYMPHOCYTES % (AUTO) 15 % (12-44); MEAN CORPUSCULAR HEMOGLOBIN 24 PG (25-34); MEAN CORPUSCULAR HGB CONC 31 G/DL (32-36); MEAN CORPUSCULAR VOLUME 77 FL (80-99); MEAN PLATELET VOLUME 10.6 FL (7.4-10.4); MONOCYTES # (AUTO) 0.5 X 10^3 (0.0-1.0); MONOCYTES % (AUTO) 6 % (0-12); NEUTROPHILS # (AUTO) 6.1 X 10^3 (1.8-7.8); NEUTROPHILS % (AUTO) 76 % (42-75); PLATELET COUNT 310 10^3/uL (130-400)
[2019-11-02 16:03] LABS: ALANINE AMINOTRANSFERASE 26 U/L (0-55); ALBUMIN 3.8 GM/DL (3.2-4.5); ALKALINE PHOSPHATASE 166 U/L (40-136); BILIRUBIN,TOTAL 0.3 MG/DL (0.1-1.0); BUN/CREATININE RATIO 28; CARBON DIOXIDE 21 MMOL/L (21-32); CHLORIDE 101 MMOL/L (98-107); CREATININE SERUM 0.78 MG/DL (0.60-1.30); GFR ESTIMATED > 60; GLUCOSE 270 MG/DL (70-105); SODIUM 135 MMOL/L (135-145); TOTAL PROTEIN 8.3 GM/DL (6.4-8.2)
[2019-11-02 16:34] LABS: ERYTHROCYTE SEDIMENTATION RATE 25 MM/HR (0-15)
== END ==
LOC: IHC 15:30
PROVIDERS: ATTEND Internal Medicine Infectious Disease
DX: L03.115 Cellulitis of right lower limb (principal); L97.512 Non-pressure chronic ulcer of other part of right foot with fat layer exposed; B95.1 Streptococcus, group B, as the cause of diseases classified elsewhere; Z79.1 Long term (current) use of non-steroidal anti-inflammatories (NSAID)
CPT/HCPCS: 36415; 80053; 85025; 85652; 86141

== ENCOUNTER 2022-05-26 19:59 | Inpatient (IN) | payer MEDICAID ==
[~2022-05-26] VITALS: Ht 175 cm; Wt 141.0 kg
[2022-05-26] MEDS ORDERED: ACETAMINOPHEN 500 MG TAB (TYLENOL) PO ONE (20:15)
[2022-05-26] MEDS ORDERED: NITROGLYCERIN 0.4 MG SL TABS BTL 25'S SL PRN (20:15)
[2022-05-26] MEDS ORDERED: NS IV 1000 ML 1,000 ML IV SCH (20:15)
[2022-05-26] MEDS ORDERED: ASPIRIN 81 MG CHEW (CHILDREN'S ASA) PO ONE (20:15)
--- NOTE | 2022-05-26 20:31 | ED General ---
General Chief Complaint: Respiratory Problems Stated Complaint: TIGHTNESS OF CHEST, SOB, WEAKNESS, CHF Source of Information: Patient (IS LIMITED HISTORIAN ; POOR MEMORY), Other (EX DOES ALL TALKING FOR PT) History of Present Illness Date Seen by Provider: May 26, 2022 Time Seen by Provider: 20:10 Initial Comments PT ARRIVES VIA POV--IS HERE VISITING FROM [place] PT LIVES IN A [facility] IN [place] HAS BEEN AT [facility] ALL WEEKEND, THEN BACK TO [place] AND THEN DROVE HERE TODAY TO VISIT FRIENDS PT WITH MULTIPLE COMPLAINTS HE HAS NOT FELT WELL ALL DAY--HAS HAD CHILLS ALL DAY,AND WORE A HEAVY COAT ALL DAY ( TEMP IS 100 DEGREES OUTSIDE, WITH HEAT INDEX OF 105) STATES THEN HE STARTED GETTING HOT JUST PRIOR TO ARRIVAL HAS NOT CHECKED TEMP AT ANY TIME TODAY HAS FELT WEAK ALL DAY 15 MINUTES PRIOR TO ARRIVAL, HE BEGAN TO HAVE SOME CHEST PAIN/TIGHTNESS AND SHORTNESS OF BREATH PT HAS HISTORY OF HEART BLOCK AND CHF--HAS A PACEMAKER. PT WAS RECENTLY DX WITH MELANOMA ON HIS BACK, BUT HAS NOT STARTED TREATMENT YET. PT HAS HAD COLON CANCER AND HAS ILEOSTOMY IN PLACE. PT IS INSULIN DEPENDENT DIABETIC, BUT HAS NOT CHECKED BLOOD GLUCOSE ALL WEEKEND OR FOLLOWED ANY DIET. PT DOES NOT KNOW ANY OF HIS MEDICATIONS AND DID NOT BRING A LIST OF MEDICATIONS. PER MED RECONCILIATION, PT IS ON ELIQUIS, WELL MULTIPLE OTHER MEDICATIONS FOR DIABETES, HTN AND CARDIAC ISSUES. PT CONTINUES TO SMOKE AT LEAST 1 PPD, ALSO OCCASIONALLY USES ALCOHOL PT HAS HAD COVID-19 VACCINES X 3, BUT DOES NOT KNOW WHEN HE HAD THOSE PCP: PT DOES NOT KNOW NAME OF HIS REGULAR DR OR JOB HAND. Allergies and Home Medications Allergies Coded Allergies: No Known Drug Allergies (Unverified , 05/26/22) Review of Systems Review of Systems Constitutional: see HPI, chills, fever, malaise, weakness EENTM: no symptoms reported Respiratory: see HPI, cough, short of breath Cardiovascular: see HPI, chest pain, edema (CHRONIC ) Gastrointestinal: no symptoms reported Genitourinary: no symptoms reported Musculoskeletal: other (BODY ACHES) Skin: no symptoms reported Psychiatric/Neurological: No Symptoms Reported Hematologic/Lymphatic: No Symptoms Reported Immunological/Allergic: no symptoms reported Past Gjbxawm-Cawjkq-Bdblbf Hx Patient Social History Tobacco Use?: Yes Tobacco type used: Cigarettes Smoking Status: Current Everyday Smoker Substance use?: No Alcohol Use?: Yes Alcohol Frequency: Several times a month Past Medical History Surgeries: Yes Abdominal, Amputation, Bowel Surgery, Cardiac, Pacemaker Respiratory: No (DENIES) Cardiac: Yes (HEART BLOCK-S/P PACEMAKER; CHF) Chronic Edema/Swelling, High Cholesterol, Hypertension Neurological: Yes (POOR MEMORY) TIA Genitourinary: Yes ("STAGE 4 KIDNEY DISEASE"-NO DIALYSIS) Renal Failure Gastrointestinal: Yes (COLON CANCER WITH PERMANENT ILEOSTOMY) Musculoskeletal: Yes (RIGHT TOES 3,4,5 AMPUTATED. ) Amputee Endocrine: Yes (MORBID OBESITY) Physical Exam Vital Signs Vital Signs - First Documented 05/26/22 20:10 Temp 37.8 Pulse 78 Resp 16 B/P (MAP) 116/64 (81) Pulse Ox 99 O2 Delivery Nasal Cannula O2 Flow Rate 2.00 Capillary Refill : Height, Weight, BMI Height: '" Weight: lbs. oz. kg; BMI Method: General Appearance: No Apparent Distress, Obese (MORBIDLY OBESE), Other (MORBIDLY OBESE, SOMEWHAT LETHARGIC, BUT NO DISTRESS. PT IS EXTREMELY MALODOURUS, FILTHY, AND COVERED IN ANIMAL HAIR. PT IS NOT WEARING SHOES, ONLY NO-SLIP HOSPITAL-TYPE SOCKS, WHICH ARE FILTHY AND THE SOLES ARE COMPLETELY BLACK WITH DIRT. MILDY DYSPNEIC BUT ABLE TO TALK IN SHORT SENTENCES. ) HEENT: PERRL/EOMI, Moist Mucous Membranes Neck: Normal Inspection Respiratory: No Accessory Muscle Use, No Respiratory Distress, Decreased Breath Sounds (IN BASES), Other (PACEMAKER TO RIGHT CHEST. ) Cardiovascular: Regular Rate, Rhythm, No Murmur Gastrointestinal: Non Tender, Soft, Other (ILEOSTOMY IN RIGHT UPPER QUADRANT) Back: No CVA Tenderness, Other (SCABBED WOUND TO RIGHT UPPER BACKK--SITE OF MELANOMA. ) Extremity: Normal Capillary Refill, Non Tender, Other (BOTH LEGS WITH VELCRO LEG WRAPS TO LOWER LEG, WHICH ARE WET.--DIFFICULT TO DETERMINE DEGREE OF EDEMA DUE TO BODY HABITUS. RIGHT TOES 3,4,5 ARE MISSING. THERE IS A LARGE CALLOUS WITH COME CENTRAL ULCERATION TO PLANTAR ASPECT OF RIGHT FOOT AT FIRST MTP JOINT AREA. NO SIGNS OF INFECTION AT THIS TIME. THERE ARE NO OPEN WOUNDS TO EITHER LEG OR TO LEFT FOOT. ) Neurologic/Psychiatric: Alert, Oriented x3 (BUT POOR MEMORY), No Motor/Sensory Deficits Skin: Normal Color, Warm/Dry (VERY WARM); No Rash Focused Exam Sepsis Stage: Sepsis Possible Source: Pulmonary Lactate Level 05/26/22 20:24: Lactic Acid Level 3.00*H Time of Focused Exam: 21:00 Respiratory: Normal Breath Sounds, No Accessory Muscle Use, No Respiratory Distress Cardiovascular: Regular Rate, Rhythm Capillary Refill: Less Than 3 Seconds Skin: normal color, warm/dry Lactic Acid Level Laboratory Tests Test 05/26/22 20:24 Lactic Acid Level 3.00 MMOL/L (0.50-2.00) *H Within 3hrs of presentation: Admin fluids, Admin ABX, Blood cultures prior to ABX's, Focus exam, Lactate level Progress/Results/Core Measures Suspected Sepsis SIRS Temperature: Pulse: Respiratory Rate: Laboratory Tests 05/26/22 20:24: White Blood Count 19.7H Blood Pressure / Mean: 05/26/22 20:24: Lactic Acid Level 3.00*H Laboratory Tests 05/26/22 20:24: Creatinine 1.68H, INR Comment 1.5H, Platelet Count 210, Total Bilirubin 1.6H Results/Orders Lab Results Laboratory Tests Test 05/26/22 20:17 05/26/22 20:24 05/26/22 21:56 Range/Units Influenza Type A (RT-PCR) Not Detected Not Detecte Influenza Type B (RT-PCR) Not Detected Not Detecte SARS-CoV-2 RNA (RT-PCR) Not Detected Not Detecte White Blood Count 19.7 H 4.3-11.0 10^3/uL Red Blood Count 4.38 4.30-5.52 10^6/uL Hemoglobin 10.0 L 13.3-17.7 g/dL Hematocrit 33 L 40-54 % Mean Corpuscular Volume 75 L 80-99 fL Mean Corpuscular Hemoglobin 23 L 25-34 pg Mean Corpuscular Hemoglobin Concent 31 L 32-36 g/dL Red Cell Distribution Width 18.8 H 10.0-14.5 % Platelet Count 210 130-400 10^3/uL Mean Platelet Volume 9.6 9.0-12.2 fL Immature Granulocyte % (Auto) 1 % Neutrophils (%) (Auto) 90 H 42-75 % Lymphocytes (%) (Auto) 2 L 12-44 % Monocytes (%) (Auto) 7 0-12 % Eosinophils (%) (Auto) 0 0-10 % Basophils (%) (Auto) 0 0-10 % Neutrophils # (Auto) 17.8 H 1.8-7.8 10^3/uL Lymphocytes # (Auto) 0.4 L 1.0-4.0 10^3/uL Monocytes # (Auto) 1.3 H 0.0-1.0 10^3/uL Eosinophils # (Auto) 0.0 0.0-0.3 10^3/uL Basophils # (Auto) 0.1 0.0-0.1 10^3/uL Immature Granulocyte # (Auto) 0.1 0.0-0.1 10^3/uL Neutrophils % (Manual) 97 % Lymphocytes % (Manual) 1 % Monocytes % (Manual) 2 % Polychromasia MODERATE Elliptocytes MODERATE Erythrocyte Sedimentation Rate 35 H 0-15 MM/HR Prothrombin Time 18.2 H 12.2-14.7 SEC INR Comment 1.5 H 0.8-1.4 Activated Partial Thromboplast Time 37 H 24-35 SEC D-Dimer 1.63 H 0.00-0.49 UG/ML Sodium Level 133 L 135-145 MMOL/L Potassium Level 4.3 3.6-5.0 MMOL/L Chloride Level 102 98-107 MMOL/L Carbon Dioxide Level 17 L 21-32 MMOL/L Anion Gap 14 5-14 MMOL/L Blood Urea Nitrogen 22 H 7-18 MG/DL Creatinine 1.68 H 0.60-1.30 MG/DL Estimat Glomerular Filtration Rate 50 BUN/Creatinine Ratio 13 Glucose Level 248 H 70-105 MG/DL Lactic Acid Level 3.00 *H 0.50-2.00 MMOL/L Calcium Level 9.1 8.5-10.1 MG/DL Corrected Calcium 9.4 8.5-10.1 MG/DL Magnesium Level 1.6 1.6-2.4 MG/DL Total Bilirubin 1.6 H 0.1-1.0 MG/DL Aspartate Amino Transf (AST/SGOT) 23 5-34 U/L Alanine Aminotransferase (ALT/SGPT) 21 0-55 U/L Alkaline Phosphatase 228 H 40-136 U/L Total Creatine Kinase 100 30-200 U/L Creatine Kinase MB 0.8 <6.6 NG/ML Myoglobin 351.5 H 10.0-92.0 NG/ML Troponin I 0.042 H <0.028 NG/ML C-Reactive Protein High Sensitivity 5.14 H 0.00-0.50 MG/DL B-Type Natriuretic Peptide 559.9 H <100.0 PG/ML Total Protein 7.6 6.4-8.2 GM/DL Albumin 3.6 3.2-4.5 GM/DL Amylase Level 18 L 25-125 U/L Lipase 18 8-78 U/L Procalcitonin 1.15 H <0.10 NG/ML TSH Nora Testing 2.16 0.35-4.94 UIU/ML Urine Color YELLOW Urine Clarity CLEAR Urine pH 5.5 5-9 Urine Specific [place] 1.020 1.016-1.022 Urine Protein 2+ H NEGATIVE Urine Glucose (UA) NEGATIVE NEGATIVE Urine Ketones NEGATIVE NEGATIVE Urine Nitrite NEGATIVE NEGATIVE Urine Bilirubin NEGATIVE NEGATIVE Urine Urobilinogen 0.2 < = 1.0 MG/DL Urine Leukocyte Esterase NEGATIVE NEGATIVE Urine RBC (Auto) 3+ H NEGATIVE Urine RBC NONE /HPF Urine WBC 0-2 /HPF Urine Squamous Epithelial Cells NONE /HPF Urine Renal Epithelial Cells NONE /HPF Urine Crystals NONE /LPF Urine Bacteria NEGATIVE /HPF Urine Casts NONE /LPF Urine Mucus NEGATIVE /LPF Urine Other FEW SPERM H /HPF Urine Culture Indicated CULTURE PENDING Urine Opiates Screen NEGATIVE NEGATIVE Urine Oxycodone Screen NEGATIVE NEGATIVE Urine Methadone Screen NEGATIVE NEGATIVE Urine Propoxyphene Screen NEGATIVE NEGATIVE Urine Barbiturates Screen NEGATIVE NEGATIVE Ur Tricyclic Antidepressants Screen NEGATIVE NEGATIVE Urine Phencyclidine Screen NEGATIVE NEGATIVE Urine Amphetamines Screen NEGATIVE NEGATIVE Urine Methamphetamines Screen NEGATIVE NEGATIVE Urine Benzodiazepines Screen NEGATIVE NEGATIVE Urine Cocaine Screen NEGATIVE NEGATIVE Urine Cannabinoids Screen POSITIVE H NEGATIVE My Orders Orders - TEGAN POSADAS DO Ekg Tracing (05/26/22 20:06) Ed Iv/Invasive Line Start (05/26/22 20:12) O2 (05/26/22 20:12) Monitor-Rhythm Ecg Trace Only (05/26/22 20:12) Amylase (05/26/22 20:12) Bnp Sugar (05/26/22 20:12) Cbc With Automated Diff (05/26/22 20:12) Comprehensive Metabolic Panel (05/26/22 20:12) Creatine Kinase (05/26/22 20:12) Creatine Kinase Mb (7/5/22 20:12) Fibrin Degradation Products (05/26/22 20:12) Lipase (05/26/22 20:12) Magnesium (05/26/22 20:12) Protime With Inr (05/26/22 20:12) Partial Thromboplastin Time (05/26/22 20:12) Thyroid Analyzer (05/26/22 20:12) Myoglobin Serum (05/26/22 20:12) Troponin I [place] (05/26/22 20:12) Chest 1 View, Ap/Pa Only (05/26/22 20:12) Ed Iv/Invasive Line Start (05/26/22 20:12) Blood Culture (05/26/22 20:14) Urinalysis (05/26/22 20:14) Urine Culture (05/26/22 20:14) Ed Iv/Invasive Line Start (05/26/22 20:14) Vital Signs Adult Sepsis Patie Q15M (05/26/22 20:14) Remove Rings In Anticipation O (05/26/22 20:14) Lactic Acid Analyzer (05/26/22 20:14) Procalcitonin (Pct) (05/26/22 20:14) Hs C Reactive Protein (05/26/22 20:14) Erythrocyte Sedimentation Rate (05/26/22 20:14) Covid 19 Inhouse Test (05/26/22 20:14) Influenza A And B By Pcr (05/26/22 20:14) Isolation Central Supply Req (05/26/22 20:14) Ed Iv/Invasive Line Start (05/26/22 20:14) Ns Iv 1000 Ml (Sodium Chloride 0.9%) (05/26/22 20:15) Nitroglycerin 0.4 Mg Btl 25's (Nitrostat (05/26/22 20:15) Aspirin Chewable Tablet (Baby Aspirin Ch (05/26/22 20:15) Acetaminophen Tablet (Tylenol Tablet) (05/26/22 20:15) Drug Screen Stat (Urine) (05/26/22 20:14) Manual Differential (05/26/22 20:24) Medications Given in ED Current Medications Medications Dose Ordered Sig/Omar Route Start Time Stop Time Status Last Admin Dose Admin Acetaminophen 1,000 mg ONCE ONCE PO 05/26/22 20:15 05/26/22 20:19 DC 05/26/22 21:02 1,000 MG Aspirin 324 mg ONCE ONCE PO 05/26/22 20:15 05/26/22 20:19 DC 05/26/22 21:02 324 MG Vital Signs/I&O 05/26/22 05/26/22 20:10 20:29 Temp 37.8 Pulse 78 Resp 16 B/P (MAP) 116/64 (81) Pulse Ox 99 99 O2 Delivery Nasal Cannula Nasal Cannula O2 Flow Rate 2.00 2.00 Capillary Refill : Progress Note : Progress Note TEMP IS 100.1 ON ARRIVAL CHEST PAIN AND SEPSIS PROTOCOLS INITIATED COVID AND FLU TESTING DONE O2 SATS 92% ON ARRIVAL--UP TO 96% ON 2L/NC GIVEN ASPIRIN NO COMPLAINTS OF CHEST PAIN AT THIS TIME, SO NTG HELD. GIVEN IV FLUIDS, CEFEPIME, TYLENOL FOR FEVER NO DETERIORATION IN PT'S CONDITION DURING ER STAY PT IS VERY AGREEABLE TO BEING ADMITTED HERE, AND UNDERSTANDS THAT HE IS TOO ILL TO GO HOME. 2299--MULTITUDE OF FAMILY MEMBERS ARE HERE, AND NOW DO NOT WANT PT TO BE ADMITTED, AND MANY ARE EXTREMELY BELLIGERENT, CURSING, ETC, AND SOME WERE ASKED TO LEAVE THE PREMISES. EX AND OTHER FAMILY MEMBERS HAVE NOW CONVINCED PT TO SIGN OUT AMA. EMPHATICALLY STRESSED TO PT AND FAMILY OF RISKS OF LEAVING, INCLUDING WELL BENEFITS OF STAYING. FAMILY HAVE INSTRUCTED HIM TO SIGN OUT AMA. ECG Initial ECG Impression Date: May 26, 2022 Initial ECG Impression Time: 20:15 Initial ECG Rate: 78 Initial ECG Comparisson: No Previous ECG Available Comment 100% VENTRICULAR PACED Diagnostic Imaging Comments CXR--PER RADIOLOGIST REPORT AT 2132 FINDINGS: Pacer device is present with the battery pack overlying the right chest. The cardiac silhouette is enlarged. Minimal central pulmonary vascular congestion. The lungs appear clear when accounting for overlying soft tissues. No pleural effusion. No pneumothorax. No acute osseous abnormality. IMPRESSION: Prominence of the cardiac silhouette and pulmonary vasculature, which are likely accentuated by patient body habitus. No significant interstitial edema or pleural effusion. Reviewed: Reviewed by Me Departure Communication (Admissions) 2214--SPOKE WITH DR. DUBON, ACCEPTS PT FOR ADMIT. 2218--SPOKE WITH DR. ZAMORA, JOB HAND FOR Impression Primary Impression: Sepsis Additional Impressions: Elevated troponin Chest pain IDDM (insulin dependent diabetes mellitus) CHF (congestive heart failure) HTN (hypertension) Chronic renal insufficiency POSSIBLE PNEUMONIA Disposition: ADMITTED INPATIENT Condition: Stable Admissions Decision to Admit Reason: Admit from ER (General) Decision to Admit/Date: May 26, 2022 Time/Decision to Admit Time: 22:15 Departure-Patient Inst. Referrals: EULA KANG DO (PCP/Family) Primary Care Physician TEGAN POSADAS DO May 26, 2022 20:31
[2022-05-26 20:36] LABS: BASOPHILS # (AUTO) 0.1 10^3/uL (0.0-0.1); BASOPHILS % (AUTO) 0 % (0-10); EOSINOPHILS % (AUTO) 0 % (0-10); HEMATOCRIT 33 % (40-54); LYMPHOCYTES # (AUTO) 0.4 10^3/uL (1.0-4.0); LYMPHOCYTES % (AUTO) 2 % (12-44); MEAN CORPUSCULAR HEMOGLOBIN 23 pg (25-34); MEAN CORPUSCULAR HGB CONC 31 g/dL (32-36); MEAN CORPUSCULAR VOLUME 75 fL (80-99); MEAN PLATELET VOLUME 9.6 fL (9.0-12.2); MONOCYTES # (AUTO) 1.3 10^3/uL (0.0-1.0); MONOCYTES % (AUTO) 7 % (0-12); NEUTROPHILS # (AUTO) 17.8 10^3/uL (1.8-7.8); NEUTROPHILS % (AUTO) 90 % (42-75); PLATELET COUNT 210 10^3/uL (130-400); WHITE BLOOD COUNT 19.7 10^3/uL (4.3-11.0)
[2022-05-26 20:51] LABS: ERYTHROCYTE SEDIMENTATION RATE 35 MM/HR (0-15); FIBRIN DEGRADATION PRODUCTS 1.63 UG/ML (0.00-0.49); INR 1.5 (0.8-1.4); PROTHROMBIN TIME PATIENT 18.2 SEC (12.2-14.7)
[2022-05-26 20:54] LABS: ELLIPT/OVALOCYTES MODERATE; LYMPHOCYTES % (MANUAL) 1 %; MONOCYTES % (MANUAL) 2 %; NEUTROPHILS % (MANUAL) 97 %; POLYCHROMASIA MODERATE
[2022-05-26 20:56] LABS: ALBUMIN 3.6 GM/DL (3.2-4.5); POTASSIUM 4.3 MMOL/L (3.6-5.0)
[2022-05-26 20:57] LABS: CALCIUM 9.1 MG/DL (8.5-10.1)
[2022-05-26 20:58] LABS: TOTAL PROTEIN 7.6 GM/DL (6.4-8.2)
[2022-05-26 21:00] LABS: BILIRUBIN,TOTAL 1.6 MG/DL (0.1-1.0)
[2022-05-26 21:02] LABS: CREATININE SERUM 1.68 MG/DL (0.60-1.30)
[2022-05-26 21:05] LABS: MAGNESIUM 1.6 MG/DL (1.6-2.4)
[2022-05-26 21:16] LABS: CREATINE KINASE MB 0.8 NG/ML (<6.6)
--- NOTE | 2022-05-26 21:27 | Diagnostic Imaging Report ---
INDICATION: Chest pain COMPARISON: None available. TECHNIQUE: Single frontal radiograph of the chest dated 05/26/2021. FINDINGS: Pacer device is present with the battery pack overlying the right chest. The cardiac silhouette is enlarged. Minimal central pulmonary vascular congestion. The lungs appear clear when accounting for overlying soft tissues. No pleural effusion. No pneumothorax. No acute osseous abnormality. IMPRESSION: Prominence of the cardiac silhouette and pulmonary vasculature, which are likely accentuated by patient body habitus. No significant interstitial edema or pleural effusion. Dictated by: Dictated on workstation # [id number]
[2022-05-26 21:28] LABS: TSH (THYROID ANALYZER) 2.16 UIU/ML (0.35-4.94)
[2022-05-26 22:04] LABS: BILIRUBIN,URINE NEGATIVE (NEGATIVE); CLARITY,URINE CLEAR; COLOR,URINE YELLOW; GLUCOSE, URINE (UA) NEGATIVE (NEGATIVE); KETONES,URINE NEGATIVE (NEGATIVE); LEUKOCYTE ESTERASE ,URINE NEGATIVE (NEGATIVE); NITRITE,URINE NEGATIVE (NEGATIVE); PH,URINE 5.5 (5-9); PROTEIN,URINE 2+ (NEGATIVE)
[2022-05-26 22:13] LABS: BACTERIA,URINE NEGATIVE /HPF; URINE OTHER FEW SPERM /HPF; WBC,URINE 0-2 /HPF
[2022-05-26 22:14] LABS: AMPHETAMINE SCREEN, URINE NEGATIVE (NEGATIVE); BENZODIAZEPINES SCREEN URINE NEGATIVE (NEGATIVE); COCAINE SCREEN URINE NEGATIVE (NEGATIVE)
[2022-05-26 22:15] LABS: BARBITURATE SCREEN URINE NEGATIVE (NEGATIVE); CANNABINOID SCREEN, URINE POSITIVE (NEGATIVE); METHADONE STAT NEGATIVE (NEGATIVE); OPIATE SCREEN URINE NEGATIVE (NEGATIVE); OXYCODONE STAT NEGATIVE (NEGATIVE); PROPOXYPHENE STAT NEGATIVE (NEGATIVE); TRICYCLIC ANTIDEPRESSANTS SCRE NEGATIVE (NEGATIVE)
[2022-05-26 23:39] VITALS: BP 140/72
== END 2022-05-26 23:00 | disposition left against medical advice (07) | DRG 871 ==
LOC: EDUNIT# 19:59 → ER 20:04 → ICU 22:15
PROVIDERS: ADMIT Internal Medicine; ATTEND Internal Medicine
DX: A41.9 Sepsis, unspecified organism (principal); J18.9 Pneumonia, unspecified organism; I13.0 Hypertensive heart and chronic kidney disease with heart failure and stage 1 through stage 4 chronic kidney disease, or unspecified chronic kidney disease; N18.4 Chronic kidney disease, stage 4 (severe); Z68.41 Body mass index [BMI] 40.0-44.9, adult; R77.8 Other specified abnormalities of plasma proteins; R07.9 Chest pain, unspecified; I50.9 Heart failure, unspecified; E11.22 Type 2 diabetes mellitus with diabetic chronic kidney disease; Z20.822 Contact with and (suspected) exposure to COVID-19; F17.210 Nicotine dependence, cigarettes, uncomplicated; Z95.0 Presence of cardiac pacemaker; Z86.73 Personal history of transient ischemic attack (TIA), and cerebral infarction without residual deficits; E66.01 Morbid (severe) obesity due to excess calories; Z89.421 Acquired absence of other right toe(s); E78.00 Pure hypercholesterolemia, unspecified; Z93.2 Ileostomy status; Z85.038 Personal history of other malignant neoplasm of large intestine
CPT/HCPCS: 36415; 71045; 80053; 80306; 81000; 82150; 82550; 82553; 83605; 83690; 83735; 83874; 83880; 84145; 84443; 84484; 85007; 85027; 85379; 85610; 85652; 85730; 86141; 87040; 87088; 87636; 93005; 93041